=== PATIENT | male | born 1980 | race Caucasian/White ===

== ENCOUNTER 2017-08-30 07:38 | Outpatient (CLI) | payer BC ==
--- NOTE | 2017-08-30 09:20 | MRI ---
CERVICAL SPINE MRI WITHOUT IV CONTRAST: HISTORY: A 36-year-old male with a history of cervical radiculopathy with numbness and tingling in the right a rm and hand. Prior surgery right shoulder. FINDINGS: Multiplanar, multisequence MRI examination of the cervical spine is performed. Visualized skull base and brain appear unremarkable. There are some generalized disk desiccation changes and ligament and fact hypertrophy changes. C2-C3 disk is unremarkable. C3-C4 disk shows minimal right ventral thecal sac indention from small disk-osteophyte with slight fo raminal encroachment. C4-C5 disk is unremarkable. C5-C6, very prominent broad-based disk-osteophytosis with moderate ventral central canal and more sev ere ventral lateral recess stenosis bilaterally with moderate bilateral foraminal stenosis. C6-C7, moderate to severe central canal and right and left ventral lateral recess stenosis from exten sive diffuse disk-osteophytosis with bilateral foraminal stenosis worse on the right side. C7-T1 level is unremarkable. IMPRESSION: Multilevel variable severity disk-osteophytosis with central canal, lateral recess, and foraminal ria nosis most marked at C5-C6 and C6-C7. No abnormal marrow signal. No spinal cord mass. POS: [facility]
== END 2017-08-30 07:39 | disposition home or self-care (01) ==
LOC: TBSIIMAG 07:38
PROVIDERS: ATTEND Family Medicine
DX: M54.12 Radiculopathy, cervical region (principal); M48.02 Spinal stenosis, cervical region; M99.81 Other biomechanical lesions of cervical region; M25.78 Osteophyte, vertebrae
CPT/HCPCS: 72141

== ENCOUNTER 2017-09-26 14:51 | Outpatient (CLI) | payer BC ==
--- NOTE | 2017-09-26 16:13 | RAD ---
LUMBAR SPINE FOUR VIEWS INCLUDING FLEXION AND EXTENSION STANDING LATERAL VIEWS: History: 36-year-old male with history of lumbar radiculopathy with bilateral leg weakness, more so on the rig ht side. FINDINGS: There are some generalized disc osteophytosis and facet arthrosis. No abnormal translation between fl exion and extension. No acute fracture. IMPRESSION: Lumbar spondylosis. No abnormal translation between flexion and extension. POS: [facility]
--- NOTE | 2017-09-26 16:28 | MRI ---
MRI LUMBAR SPINE: History: Weakness, right side for three weeks. Technique: Multiplanar, multisequence noncontrast enhanced MRI images of the lumbar spine obtained. FINDINGS: T12-L1: Unremarkable. L1-2: Unremarkable. L2-3: Disc desiccation is seen. There is a broad based disc bulge with bilateral facet hypertrophy. N o significant degree of central stenosis is seen. The neural foramen are patent. L3-4: Disc desiccation is seen. There is a broad based central disc protrusion with bilateral facet h ypertrophy. Some fluid seen in the L3-4 facet joints. Mild central spinal stenosis is seen. There is mild bilateral neural foraminal narrowing seen at this level. L4-5: Unremarkable. L5-S1: Disc desiccation is seen. There is a broad based central disc protrusion. Bilateral facet hype rtrophy is seen. No significant degree of central stenosis is seen. The neural foramen are patent. IMPRESSION: Disc desiccation and broad based disc bulges at L2-3, L3-4, and L5-S1. POS: [facility]
== END 2017-09-26 14:52 | disposition home or self-care (01) ==
LOC: TBSIIMAG 14:51
PROVIDERS: ATTEND Surgery
DX: M47.26 Other spondylosis with radiculopathy, lumbar region (principal); M51.16 Intervertebral disc disorders with radiculopathy, lumbar region; M51.17 Intervertebral disc disorders with radiculopathy, lumbosacral region
CPT/HCPCS: 72110; 72148

== ENCOUNTER 2017-10-24 15:35 | Outpatient (CLI) | payer BC ==
[2017-10-24 16:56] LABS: Anion Gap 12 mmol/L (10-20); BUN (Urea Nitrogen) 17 mg/dL (8.9-20.6); Calc. Creatinine Clearance 0 mL/min (70-130); Calcium 9.6 mg/dL (7.8-10.44); Carbon Dioxide 28 mmol/L (22-29); Chloride 105 mmol/L (98-107); Estimated GFR-MDRD 77; Glucose 82 mg/dL (70-105); Potassium 4.5 mmol/L (3.5-5.1); Sodium 140 mmol/L (136-145)
[2017-10-24 17:43] LABS: Hemoglobin 14.5 g/dL (14.0-18.0); Mean Corpuscular HGB CONC 34.8 g/dL (32.0-36.0); Mean Corpuscular Hemoglobin 31.1 pg (27.0-31.0); Mean Corpuscular Volume 89.3 fL (78.0-98.0); Mean Platelet Volume 6.5 fL (7.4-10.4); Platelet Count 252 thou/uL (130-400); Red Blood Cell (RBC) Count 4.67 mill/uL (4.70-6.10); White Blood Cell (WBC) Count 5.8 thou/uL (4.8-10.8)
[2017-10-24 17:53] LABS: Prothrombin Time 13.4 SEC (12.0-14.7)
[2017-10-24 17:54] LABS: PTT 31.8 SEC (22.9-36.1)
== END 2017-10-24 15:36 | disposition home or self-care (01) ==
LOC: LABBT 15:35
PROVIDERS: ATTEND Surgery
DX: Z01.818 Encounter for other preprocedural examination (principal)
CPT/HCPCS: 80048; 85027; 85610; 85730; 93005; 93010

== ENCOUNTER 2017-10-31 05:58 | Day surgery (SDC) | payer BC ==
[2017-10-31] MEDS ORDERED: Sodium Chloride 0.9% 10 ML ONE (06:25)
[2017-10-31] MEDS ORDERED: Thrombin 5000 UNITS/5 ML VIAL ONE (06:25)
[2017-10-31] MEDS ORDERED: Bacitracin Zinc Ointment 30 gm TUBE ONE (06:26)
[2017-10-31] MEDS ORDERED: CEFAZOLIN/Water 2 GM/20 ML SYRINGE ONE (06:40)
[2017-10-31] MEDS ORDERED: Midazolam HCl 2 mg/2 ml Vial ONE (07:06)
[2017-10-31] MEDS ORDERED: Fentanyl 100 MCG/2 ML VIAL ONE ×6 (07:25→10:55)
[2017-10-31] MEDS ORDERED: HYDROcodone/Acetaminophen 7.5/325 mg Tablet PO PRN (10:11)
[2017-10-31] MEDS ORDERED: Bisacodyl 10 MG SUPP PR PRN (10:11)
[2017-10-31] MEDS ORDERED: Mag-Al 1200 mg/1200 mg/30 ML UDCUP PO PRN (10:11)
[2017-10-31] MEDS ORDERED: Promethazine HCl 25 MG/ML VIAL IM PRN ×2 (10:11→10:17)
[2017-10-31] MEDS ORDERED: traMADol HCl 50 MG TAB PO PRN (10:11)
[2017-10-31] MEDS ORDERED: Milk Of Magnesia 30 ML UDCUP PO PRN (10:11)
[2017-10-31] MEDS ORDERED: Fleet Enema 133 ML BOT PR PRN (10:11)
[2017-10-31] MEDS ORDERED: Acetaminophen 325 MG TAB PO PRN (10:11)
[2017-10-31] MEDS ORDERED: Promethazine HCl 25 MG/ML VIAL SLOW IVP PRN (10:17)
[2017-10-31] MEDS ORDERED: Meperidine HCl/PF 25 MG/ML VIAL SLOW IVP PRN (10:17)
[2017-10-31] MEDS ORDERED: Morphine Sulfate 2 MG/ML SYRINGE SLOW IVP PRN (10:17)
[2017-10-31] MEDS ORDERED: Ondansetron HCl/PF 4 MG/2 ML Vial IVP PRN (10:17)
[2017-10-31] MEDS ORDERED: HYDROmorphone 2 MG/ML VIAL SLOW IVP PRN (10:17)
--- NOTE | 2017-10-31 10:30 | OP ---
DATE OF PROCEDURE: 10/31/2017 OR: 12 WOUND TYPE: Type 1 wound. SURGEON: Seth Gupta M.D. QUALITY ASSURANCE TECH: Arnold Levine PA-C. PREPROCEDURE DIAGNOSES: Neck and right arm pain with disk extrusions C5-C6, C6-C7. POSTPROCEDURE DIAGNOSES: Neck and right arm pain with disk extrusions C5-C6, C6-C7. PROCEDURES: 1. Anterior C5-C6, anterior C6-C7 diskectomies for decompression spinal cord and C6 and C7 nerve lottie ts. 2. Preparation of the endplates with placement of interbody spacer, C5-C6, C6-C7 packed with local b one autograft obtained from same incision and allograft. 3. Anterior cervical plate and screw fixation at C5, C6, C7. 4. Use of operative microscope for microdissection. DESCRIPTION OF PROCEDURE: After informed consent was obtained from the patient, the patient brought to OR 11. Proper patient pause and identification was carried out. He was placed in excellent endot ken anesthesia and positioned supine on the OR table. All appropriate points were padded. We id entified a right anterior oblique tashi to allow for approach C5, C6, C7 segments. This region was st erilely cleansed, prepared, and draped. Proper patient pause and the identification was carried out. The right anterior oblique wound was opened with sharp, monopolar and blunt dissection proceeded la teral to tracheoesophageal bundle medial to the right carotid sheath and to the C5, C6, C7 segments a nd prevertebral layer of deep cervical fascia. A localization film confirmed our area of interest. We then retracted the longus colli muscles distraction at C5-C6 and diskectomy was performed with the use of operative microscope for microdissection. We had excellent decompression of the common dural tube and the C6 nerve roots. Interbody spacer packed with graft was placed at C5-C6 for arthrodesis following preparation of the endplates. Distraction was then released and C6-C7 distraction then oc curred. Diskectomy was performed at C6-C7 with excellent decompression of the common dural tube and the C7 nerve roots. We had bilateral decompression of the C7 nerve roots and copious irrigation occu rred throughout. We are then pleased with our decompression and interbody spacer packed with graft w as placed at C6-C7 for arthrodesis. After preparation of the endplates, anterior cervical plate and screw fixation at C5, C6, C7, then occurred with final tightening following removal of the microscope . Copious irrigation occurred throughout as did maximizing hemostasis. The wound was then closed in anatomic layers over a drain. The patient then emerged from anesthesia.
[2017-10-31] MEDS ORDERED: Meperidine HCl/PF 25 MG/ML VIAL ONE (10:36)
[2017-10-31] MEDS ORDERED: Morphine 4 MG/ML VIAL ONE (11:16)
[2017-10-31] MEDS: Sodium Chloride 0.9% 1,000 ML IV SCH (12:26)
[2017-10-31 12:54] VITALS: BMI 24.4
[2017-10-31] MEDS: tiZANidine HCl 4 MG TAB PO PRN ×2 (12:55→20:36)
[2017-10-31] MEDS ORDERED: CEFAZOLIN/Water 2 GM/20 ML SYRINGE SLOW IVP SCH (14:00)
[2017-10-31] MEDS ORDERED: Ondansetron HCl/PF 4 MG/2 ML Vial ONE (14:41)
[2017-10-31] MEDS ORDERED: Glycopyrrolate 0.2 MG/ML 5 ML SYRINGE ONE (14:41)
[2017-10-31] MEDS ORDERED: Dexamethasone 20 MG/5 ML VIAL ONE (14:41)
[2017-10-31] MEDS ORDERED: PROPOFOL 200 MG/20 ML VIAL ONE (14:41)
[2017-10-31] MEDS ORDERED: Vecuronium 10 MG VIAL ONE (14:41)
[2017-10-31] MEDS ORDERED: Metoclopramide HCl 10 MG/2 ML VIAL ONE (14:41)
[2017-10-31] MEDS ORDERED: Lidocaine 1% PF 5 ML VIAL ONE (14:41)
[2017-10-31] MEDS: CEFAZOLIN/Water 2 GM/20 ML SYRINGE SLOW IVP SCH (15:45)
[2017-10-31] MEDS: HYDROcodone/Acetaminophen 10/325 mg Tablet PO PRN ×2 (16:35→20:36)
[2017-10-31] MEDS ORDERED: Pregabalin 75 MG CAP PO SCH (21:00)
[2017-11-01] MEDS: HYDROcodone/Acetaminophen 10/325 mg Tablet PO PRN ×3 (01:00→10:54)
[2017-11-01] MEDS: CEFAZOLIN/Water 2 GM/20 ML SYRINGE SLOW IVP SCH ×2 (01:03→09:19)
[2017-11-01] MEDS: Sodium Chloride 0.9% 1,000 ML IV SCH (01:09)
[2017-11-01] MEDS: tiZANidine HCl 4 MG TAB PO PRN (06:03)
[2017-11-01] MEDS ORDERED: Loratadine 10 MG TAB PO SCH (09:00)
[2017-11-01] MEDS ORDERED: (Lisdexamfetamine Dimesylate [Vyvanse] 40 MG) PO SCH (09:00)
[2017-11-01 10:54] VITALS: BP 142/87; TEMP 98.3
--- NOTE | 2017-11-01 15:12 | PRG ---
DATE OF SERVICE: 11/01/2017 Mr. Gallegos is postop day 1 C5-7 ACDF. He is doing well with improvement in his arm and leg pain. He is mobilizing. We will remove his drain. He has met criteria for dismissal. He will be dismissed home.
== END 2017-11-01 11:11 | disposition home or self-care (01) ==
LOC: SDC 05:58 → SURG A 11:43 → SDC 11-01 11:11
PROVIDERS: ATTEND Surgery
PROC: 0RG20A0 Fusion of 2 or more Cervical Vertebral Joints with Interbody Fusion Device, Anterior Approach, Anterior Column, Open Approach (ICD-10-PCS; principal; 2017-10-31)
PROC: 0RG2070 Fusion of 2 or more Cervical Vertebral Joints with Autologous Tissue Substitute, Anterior Approach, Anterior Column, Open Approach (ICD-10-PCS; principal; 2017-10-31)
PROC: 0RT30ZZ Resection of Cervical Vertebral Disc, Open Approach (ICD-10-PCS; principal; 2017-10-31)
DX: M50.122 Cervical disc disorder at C5-C6 level with radiculopathy (principal); M48.02 Spinal stenosis, cervical region; Z79.899 Other long term (current) drug therapy
CPT/HCPCS: 76001; 96374; 96375; 96376; A4216; C1713; C1776; J0131; J1100; J2001; J2175; J2250; J2270; J2405; J2704; J2765; J3010; J3490

== ENCOUNTER 2017-12-13 09:20 | Outpatient (CLI) | payer BC ==
--- NOTE | 2017-12-13 11:13 | RAD ---
4 VIEWS CERVICAL SPINE: Date: 12/13/17 COMPARISON: None. HISTORY: Status post anterior cage fusion in October 2017. FINDINGS: Four views of the cervical spine show the patient to be status post anterior fusion of C5-C7 with a p late and screws. Disc spaces are seen in the intervening disc spaces. No perihardware lucency is seen . The vertebral bodies demonstrate normal alignment without subluxation. No prevertebral soft tissue swelling is seen. IMPRESSION: Postsurgical changes of the cervical spine without evidence of complication. POS: [facility]
== END 2017-12-13 09:21 | disposition home or self-care (01) ==
LOC: TBSIIMAG 09:20
PROVIDERS: ATTEND Surgery
DX: M54.2 Cervicalgia (principal); Z98.890 Other specified postprocedural states
CPT/HCPCS: 72040

== ENCOUNTER 2018-01-14 18:39 | Emergency (ER) | payer BC ==
--- NOTE | 2018-01-14 21:48 | RAD ---
FIVE VIEWS CERVICAL SPINE: 01/14/18 COMPARISON: 12/13/17 HISTORY: Bilateral arm numbness. Loss of function progressing over the last two weeks. FINDINGS: There is no prevertebral soft tissue swelling. There is an uncomplicated anterior fusion plate with t ransvertebral body screw at C5, C6 and C7. No perihardware lucency. There is a disc prosthesis at C5- C6 and C6-C7. In the neutral position, there is no malalignment. Upon flexion and extension, there is no abnormal t ranslational motion. Cervical spine vertebral body height is maintained. No fracture. Cervical thoracic junction is unrema rkable. On the AP and open mouth projection, No abnormalities are appreciated. IMPRESSION: Uncomplicated cervical fusion hardware. POS: [facility]
== END 2018-01-14 20:06 | disposition home or self-care (01) ==
LOC: ERS 18:39
DX: G89.29 Other chronic pain (principal); M54.2 Cervicalgia; F32.9 Major depressive disorder, single episode, unspecified; Z79.899 Other long term (current) drug therapy
CPT/HCPCS: 72050; 99283

== ENCOUNTER 2018-05-22 08:49 | Outpatient (CLI) | payer BC ==
[2018-05-22] MEDS ORDERED: Gadobenate Dimeglumine 529 MG/1 ML (20ML VIAL) ONE (09:53)
--- NOTE | 2018-05-22 11:07 | MRI ---
MRI OF THE CHEST WITH AND WITHOUT CONTRAST: INDICATION: Right-sided extremity pain with concern for brachioplexopathy. TECHNIQUE: Multiplanar, multisequence MR images were obtained of the upper chest wall and neck utilizing brachio plexus protocol. 17 cc of MultiHance was utilized for the examination. FINDINGS: There is an ACDF involving C5 through C7 inducing some susceptibility artifact that slightly limits e valuation of the neural foramina at these respectively levels. Motion artifact also limits image det ail of the brachial plexus. No definite abnormal T2 hyperintensity or enhancement is seen along the course of the brachial plexus that shows presence of a neuritis. No definite mass is evident There is some susceptibility artifact adjacent to the distal clavicle which may reflect prior postoperative changes. IMPRESSION: 1. No suspicious abnormality is seen along the course of the brachial plexus. 2. Postoperative changes of the right shoulder and cervical spine. POS: [facility]
== END 2018-05-22 08:50 | disposition home or self-care (01) ==
LOC: TBSIIMAG 08:49
PROVIDERS: ATTEND Specialist
DX: G54.0 Brachial plexus disorders (principal); Z98.1 Arthrodesis status
CPT/HCPCS: 71552; A9577

== ENCOUNTER 2018-09-02 12:51 | Day surgery (SDC) | payer BC ==
[2018-09-01 12:21] VITALS: BMI 28.5
[2018-09-02] MEDS ORDERED: CEFAZOLIN 1 GM VIAL ONE (13:10)
[2018-09-02] MEDS ORDERED: Sodium Chloride 0.9% 100 ML ONE (13:10)
[2018-09-02] MEDS ORDERED: Midazolam HCl 2 mg/2 ml Vial ONE (13:55)
[2018-09-02] MEDS ORDERED: Fentanyl 100 MCG/2 ML VIAL ONE ×2 (13:55→14:04)
[2018-09-02] MEDS ORDERED: PROPOFOL 60 ML ONE ×2 (13:55→15:13)
[2018-09-02] MEDS ORDERED: Bupivacaine HCl 0.5%/Epinephrine 1:200,000/PF 30 ml Vial ONE ×2 (13:56→15:12)
[2018-09-02] MEDS ORDERED: PROPOFOL 200 MG/20 ML VIAL ONE (14:00)
--- NOTE | 2018-09-02 16:21 | RAD ---
EXAM: INTRAPROCEDURAL FLUOROSCOPY FOR PAIN STIMULATOR: 09/02/18 COMPARISON: None. EXPOSURE: 17.1 mGy, 4.3 Gy*cm2, 2 minutes, 48 seconds. FINDINGS: Single fluoroscopic image demonstrates a stimulator with the distal tip at approximately the C2 level . IMPRESSION: Intraoperative fluoroscopy as above. POS: [facility]
[2018-09-02] MEDS ORDERED: Ketorolac Tromethamine 0.5% Ophth Soln 3 ml Bottle L EYE PRN (17:58)
--- NOTE | 2018-09-02 18:36 | OP ---
DATE OF PROCEDURE: 09/02/2018 PREOPERATIVE DIAGNOSES: 1. Chronic pain syndrome. 2. Post-laminectomy syndrome. 3. Cervical radiculopathy. POSTOPERATIVE DIAGNOSES: 1. Chronic pain syndrome. 2. Post-laminectomy syndrome. 3. Cervical radiculopathy. PROCEDURES PERFORMED: 1. Spinal cord stimulator generator implant. 2. Spinal cord stimulator lead implant x2. BLOOD LOSS: 5 mL. DESCRIPTION OF PROCEDURE: The patient was taken to the operating room and placed prone on the operating room table. A time-out was performed. We prepped the back with DuraPrep and sterile drapes were applied. Using fluoroscopy, we located the interspace of T4-5. We anesthetized the skin above the interspace and a vertical incision was made. This was blunt dissected down to the fascia. We then inserted a 14-gauge supplied Touhy needle in a paramedian technique and engaged in the ligament. We used loss of resistance to air to achieve access to the epidural space. This was negative for CSF or heme. An 8-contact spinal cord stimulator lead was then threaded through the needle and up the dorsal midline epidural space and then splayed outward in the upper cervical spine. The exact same technique was performed on the contralateral side and splayed out to the contralateral side. Both leads were splayed to C2 and then brought together at the midline at approximately to the bottom of C3. The needles were removed taking care not to remove the leads or move the leads. Anchors were placed over the leads and brought down to fascia. These were clicked to secure the anchors to the lead. These were then secured to the fascia with 2-0 silk suture x2 each. The left buttock was anesthetized with 0.5% Marcaine with epinephrine. A scalpel used to make incision and this was blunt dissected down to Jagdish's fascia. The pocket was performed superiorly and inferiorly. A tunneling device was used to make a tunnel between the thoracic incision as well as the buttock incision. Since there was a great distance between the two incisions, we had to bring the ring tunneling device out in the left flank and then bring the leads out of the skin at this level and then dive it back in and taken to the pocket. These were connected to the battery and torqued down to fixate them to the battery. All impedances were checked, which were all good. The fascial layers were approximated using 2-0 Vicryl suture in simple interrupted fashion. Skin was approximated using a 3-0 Vicryl Rapide subcuticular stitch. Dermabond was placed as an occlusive dressing over this and then once this was dry, sterile 4x4s and Medipore tape was used over this. The patient was taken the PACU under stable condition. Job ID: [id number]
== END 2018-09-02 18:15 | disposition home or self-care (01) ==
LOC: SDC 12:51
PROVIDERS: ATTEND Specialist
PROC: 0JH70DZ Insertion of Multiple Array Stimulator Generator into Back Subcutaneous Tissue and Fascia, Open Approach (ICD-10-PCS; principal; 2018-09-02)
PROC: 00HU3MZ Insertion of Neurostimulator Lead into Spinal Canal, Percutaneous Approach (ICD-10-PCS; principal; 2018-09-02)
DX: G89.4 Chronic pain syndrome (principal); M96.1 Postlaminectomy syndrome, not elsewhere classified; M54.12 Radiculopathy, cervical region; G90.513 Complex regional pain syndrome I of upper limb, bilateral; G43.909 Migraine, unspecified, not intractable, without status migrainosus; Z79.891 Long term (current) use of opiate analgesic; Z79.899 Other long term (current) drug therapy
CPT/HCPCS: 72020; 76000; C1767; J0670; J0690; J2250; J2704; J3010; J3490

== ENCOUNTER 2018-10-30 11:30 | Day surgery (SDC) | payer BC ==
[2018-10-29 11:02] VITALS: BMI 29.2
[2018-10-30] MEDS ORDERED: Bupivacaine HCl 0.5%/Epinephrine 1:200,000/PF 30 ml Vial ONE (11:53)
[2018-10-30] MEDS ORDERED: Propofol 1,000 MG/100 ML VIAL IV ONE (12:09)
[2018-10-30] MEDS ORDERED: Sodium Chloride 0.9% 100 ML ONE (12:32)
[2018-10-30] MEDS ORDERED: CEFAZOLIN 1 GM VIAL ONE (12:32)
[2018-10-30] MEDS ORDERED: Midazolam HCl 2 mg/2 ml Vial ONE (12:34)
[2018-10-30] MEDS ORDERED: Fentanyl 100 MCG/2 ML VIAL ONE (12:34)
--- NOTE | 2018-10-30 20:36 | OP ---
DATE OF PROCEDURE: 10/30/2018 PREOPERATIVE DIAGNOSES: 1. Chronic pain syndrome. 2. Post-laminectomy syndrome. 3. Complex regional pain syndrome, G90.513. POSTOPERATIVE DIAGNOSES: 1. Chronic pain syndrome. 2. Post-laminectomy syndrome. 3. Complex regional pain syndrome, G90.513. PROCEDURE PERFORMED: Spinal cord stimulator lead revision x1. SPECIMENS REMOVED: One anchor. ESTIMATED BLOOD LOSS: 5 mL. DESCRIPTION OF PROCEDURE: The patient was taken to the procedure room and placed prone on the procedure room table. A time-out was performed. Using DuraPrep, we prepped the back, and sterile drapes were applied. We anesthetized the skin using 0.5% Marcaine with epinephrine at the anchor sites and the battery site. We made an incision with an 11-blade scalpel and used blunt dissection down to the fascial layers at the battery pocket. We exposed the pocket and brought the battery to the skin. We unhooked the left-sided lead with a torque wrench. We then blunt dissected, found the left-sided anchors, and cut the 2 sutures out. We opened the anchor and then removed that from the lead once the lead was brought to the anchor pocket. A stylet was placed through the lead, and we used continuous fluoroscopy to guide the lead inferiorly and then to the right of midline and then back up to the cervical spine stopping at the bottom of C2. Stimulation was performed with the patient awake, and the patient noted paresthesia in all pain areas. We then took the stylet out. We placed the fresh anchor over the lead, brought it down to fascia. We fixed it into place, and then we used 2-0 silk suture x2 to anchor this down to fascia. We used a tunneling device to make a tunnel between the 2 incisions. We threaded the lead through this tunneling device and brought it to the battery pocket. We connected it to the battery and torqued it down, so it would not come out. Impedances were checked, which were all good. This was inserted into the battery pocket. The fascial layers were approximated using 2-0 Vicryl suture in simple interrupted fashion. We used a 3-0 Rapide Vicryl as a subcuticular stitch and used Dermabond as an occlusive dressing. The patient was then taken to Recovery under stable condition without any apparent complications noted at this time. Job ID: [id number]
--- NOTE | 2018-10-31 08:38 | RAD ---
NINFLUOROSCOPIC SPOT IMAGES FROM A PAIN STIMULATOR PLACEMENT WITHIN THE SPINE: INDICATION: stimulator placement FINDINGS: The submitted images demonstrate lead placements overlying the mid to lower thoracic spine with the d orsal column stimulator leads projecting up to the C2 vertebral level. IMPRESSION: Dorsal column stimulator images with leads projecting up to the C2 vertebra. POS: [facility]
== END 2018-10-30 15:00 | disposition home or self-care (01) ==
LOC: SDC 11:30
PROVIDERS: ATTEND Specialist
PROC: 00HU3MZ Insertion of Neurostimulator Lead into Spinal Canal, Percutaneous Approach (ICD-10-PCS; principal; 2018-10-30)
DX: G89.4 Chronic pain syndrome (principal); M96.1 Postlaminectomy syndrome, not elsewhere classified; G90.513 Complex regional pain syndrome I of upper limb, bilateral; M12.811 Other specific arthropathies, not elsewhere classified, right shoulder; G54.0 Brachial plexus disorders; Z79.899 Other long term (current) drug therapy; Z87.891 Personal history of nicotine dependence
CPT/HCPCS: 72020; 76000; J0670; J0690; J2250; J2704; J3010; J3490